=== PATIENT | male | born 1975 ===

== ENCOUNTER 2021-12-25 20:03 | Emergency (ER) | payer SELFPAY ==
[2021-12-25] MEDS ORDERED: LIDOCAINE (2%) 20 MG/1 ML VIAL 20 ML MDV INFILTRATI STA (23:43)
--- NOTE | 2021-12-26 01:59 | XRay Report ---
LEFT FOREARM 2 VIEW(S) INDICATION / CLINICAL INFORMATION: injury / pain COMPARISON: None available. FINDINGS: BONES / JOINT(S): No acute fracture or subluxation. No significant arthritis. SOFT TISSUES: 2 foreign bodies within the dorsal mid forearm soft tissues. ADDITIONAL FINDINGS: None. IMPRESSION: 1. 2 foreign bodies within the dorsal mid forearm soft tissues. Signer Name: Emmanuel Feliz MD Signed: 12/26/2021 1:54 AM Workstation Name: [facility]
--- NOTE | 2021-12-26 02:00 | XRay Report ---
LEFT HAND 4 VIEW(S) INDICATION / CLINICAL INFORMATION: injury/ pain COMPARISON: None available. FINDINGS: BONES / JOINT(S): No acute fracture or subluxation. No significant arthritis. SOFT TISSUES: This soft tissue swelling of the fourth and fifth digits. ADDITIONAL FINDINGS: None. IMPRESSION: 1. No fracture or other acute osseous process. 2. Fourth and fifth phalangeal soft tissue swelling without radiopaque foreign body. Signer Name: Emmanuel Feliz MD Signed: 12/26/2021 1:55 AM Workstation Name: [id number]
[2021-12-26] MEDS ORDERED: oxyCODONE /ACETAMINOPHEN 5-325MG TAB PO ONE (02:48)
[2021-12-26] MEDS ORDERED: TETANUS,DIPH,PERTUSS(ACELL) VACCINE 0.5 ML SYRINGE IM ONE (02:48)
[2021-12-26] MEDS ORDERED: ceFAZolin 1 GM VIAL IM STA (04:26)
--- NOTE | 2021-12-26 06:16 | Emergency Department Report ---
Upper Extremity - HPI Chief Complaint: Wound/Laceration Stated Complaint: LAC LF FOREARM Time Seen by Provider: 12/25/21 23:43 Upper Extremity: Left Forearm, Left Ring Finger Occurred When: Today Severity: mild, moderate Symptoms: Yes Pain with Movement, Yes Laceration or Abrasion Other History: 38-year-old male presents emerged department with a laceration to his left finger and forearm region which she states was secondary to loss of balance and trip and fall and a tunneling down home. The injury resulted and and bleeding and pain significantly returned presents emergency department seeking evaluation and treatment ED Review of Systems ROS: Stated complaint: LAC LF FOREARM Other details as noted in HPI Comment: All other systems reviewed and negative ED Past Medical Hx - Medications Home Medications: Home Medications Medication Instructions Recorded Confirmed Last Taken Type Acetaminophen/Codeine [Tylenol #3] 1 tab PO Q6H PRN #15 tab 12/26/21 Unknown Rx Chlorhexidine Gluconate [Hibiclens] 10 ml TP BID #240 liquid 12/26/21 Unknown Rx cephALEXin [Keflex] 500 mg PO Q6HR #40 capsule 12/26/21 Unknown Rx Upper Extremity Exam - Exam General: Vital signs noted. No distress. Alert and acting appropriately. Head and Torso: No HEENT Abnormality, No Neck Tenderness, No Chest/Lungs Abnorm ality, No Abdominal Tenderness, No Back Tenderness Shoulder Exam: Yes Normal Range of Motion in Shoulder, No Shoulder Tenderness, No Clavicle Tenderness, No Shoulder Deformity, No AC Joint Tenderness Arm Exam: No Arm/Humerus Tenderness, No Arm Deformity Elbow: No Elbow Tenderness, No Normal Range of Motion in Elbow, No Elbow Deformity Forearm: Yes Forearm Tenderness (5 cm laceration to the mid forearm linear in nature full-thickness involving muscle but still has full range of motion and normal strength pulses are 2+), No Forearm Deformity, No Pain with Pronation, No Pain with Supination Wrist: Yes Normal ROM in Wrist, No Wrist Tenderness, No Wrist Deformity, No Snuf fbox Tenderness, No Pain with Axial Thumb Compression Hand: Yes Hand Tenderness (Laceration palmar aspect fourth digit irregularly- shaped cap refill of breath), Yes Normal ROM in Digit(s), No Hand Deformity, No Digit Tenderness, No Digit(s) Deformity, No Tendon Dysfunction CMS Exam: Yes Broken Skin, Yes Normal Distal Pulses, Yes Normal Capillary Re fill, No Normal Distal Sensation ED Course Vital Signs 12/25/21 20:05 Temperature 97.6 F Pulse Rate 87 Respiratory 16 Rate Blood Pressure 123/74 [Right] O2 Sat by Pulse 98 Oximetry ED Medical Decision Making - Medical Decision Making Injury 1 finger laceration For the finger laceration was prepped and draped in sterile fashion anesthesia achieved with 2% lidocaine without epinephrine. The laceration was repaired with a single layer closure 4-0 Ethilon with no complications with 7 sutures. Wound was dressed with a sterile bandage and and hemostasis was achieved procedure tolerated well less than 2 cc blood loss from finger Injury to forearm laceration Was prepped draped in sterile fashion after he was treated with 2% lidocaine with no epinephrine. The procedure wound was closed in layers due to the injury to the muscle. We did [id number] mattress sutures to the muscles x2 and 2 vertical mattress sutures with 3-0 Vicryl. The top of the skin was closed with rick. Foreign body was retrieved in the form of a light razor blade prior to wound closure. There were 2 shards that remained on x-ray were unable to achieve with bandage. Sterile bandages This wound was evaluated by the attending Dr. Grover who had [id number] with the patient and hands-on wound evaluation. He explored the wound himself and attempted to assess the muscle and tendon damage and located the form foreign body however was unsuccessful plan was to close the wound bandage and have follow-up with general surgery Critical care attestation.: If time is entered above; I have spent that time in minutes in the direct care of this critically ill patient, excluding procedure time. ED Disposition Clinical Impression: Forearm laceration involving tendon Disposition: 01 HOME / SELF CARE / HOMELESS Is pt being admited?: No Does the pt Need Aspirin: No Condition: Stable Instructions: Wound Care, Adult, Sutured Wound Care, Sutures, Rick, or Adhesive Wound Closure, [id number] Additional Instructions: You have been seen evaluate emergency department today for a laceration to your forearm involving a razor sharp object. There is a piece of foreign body sterilizing on we will unable to achieve due to the thickness and the depth of the laceration it is necessary to follow-up with general surgery so they can help to repair the lacerated tendon involving your forearm. Please be sure to follow-up with the listed surgeon Prescriptions: Chlorhexidine Gluconate [Hibiclens] 10 ml TP BID #240 liquid cephALEXin [Keflex] 500 mg PO Q6HR #40 capsule Acetaminophen/Codeine [Tylenol #3] 1 tab PO Q6H PRN #15 tab PRN Reason: Pain Referrals: MARY CUEVAS MD [Primary Care Provider] - 3-5 Days OTTONIEL VELA MD [Staff Physician] - [facility]
[2021-12-26 07:02] VITALS: BP 129/76
== END 2021-12-26 07:02 | disposition home or self-care (01) ==
LOC: ED 20:03
DX: S61.215A Laceration without foreign body of left ring finger without damage to nail, initial encounter (principal); S51.822A Laceration with foreign body of left forearm, initial encounter; Z79.899 Other long term (current) drug therapy; W01.0XXA Fall on same level from slipping, tripping and stumbling without subsequent striking against object, initial encounter; Y93.89 Activity, other specified; Y92.89 Other specified places as the place of occurrence of the external cause; Y99.8 Other external cause status
CPT/HCPCS: 12001; 12032; 73090; 73130; 90471; 90715; 96372; 99283; J0690; J3490